=== PATIENT | male | born 1970 | race Caucasian/White ===

== ENCOUNTER 2024-02-26 14:26 | Inpatient (IN) | payer OTHER, SELFPAY ==
[2024-02-26] VITALS (11 sets, daily range): BP systolic 111–156; BP diastolic 60–98; BMI 26.3; BMI 25.8
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
[2024-02-26 10:25] LABS: Ammonia 97 umol/L (9-30)
[2024-02-26 10:28] LABS: Glucose 222 mg/dl (70-99)
[2024-02-26 10:29] LABS: Albumin 3.4 g/dl (3.5-5.0); Alkaline Phosphatase 110 U/L (38-126); Blood Urea Nitrogen 19 mg/dl (9-20); Calcium 8.3 mg/dl (8.4-10.2); Carbon Dioxide 17 mmol/L (22-30); Chloride 108 mmol/L (98-107); Estimated Creatinine Clearance > 125 ml/min; Potassium 4.5 mmol/L (3.5-5.1); Sodium 133 mmol/L (135-145); Total Bilirubin 7.6 mg/dl (0.2-1.3); Total Protein 6.5 g/dl (6.3-8.2); eGFR > 60.00
[2024-02-26 10:30] LABS: ALT (SGPT) 26 U/L (0-50); AST (SGOT) 40 U/L (17-59); Alcohol 62 mg/dl; Magnesium 1.9 mg/dl (1.6-2.3)
[2024-02-26 11:24] LABS: Hemoglobin 12.8 g/dL (13.0-18.0); Red Blood Cell Count 3.81 10^6/uL (4.70-6.10); White Blood Cell Count 6.1 10^3/uL (4.8-10.8)
[2024-02-26 11:25] LABS: % Basophils 0.2 % (0-2); % Eosinophils 1.8 % (0-6); % Immature Granulocytes 0.5 % (0-0.5); % Lymphocytes 22.8 % (20.5-51.1); % Monocytes 16.1 % (1.7-9.3); % Neutrophils 58.6 % (42.2-75.2); Absolute Neutrophils 3.6 10^3/uL (1.4-6.5); Hematocrit 35.4 % (39.0-52.0); Mean Corp Hgb Conc. 36.2 g/dL (33.0-37.0); Mean Corpuscular Hgb 33.6 pg (27.0-31.0); Mean Corpuscular Volume 92.9 fL (80.0-94.0); Mean Platelet Volume 12.6 fL (7.4-10.4); Platelet Count 63 10^3/uL (130-400); Red Cell Dist. Width 19.3 % (11.5-14.5)
[2024-02-26 11:26] LABS: Absolute Eosinophils 0.1 10^3/uL (0-0.7); Absolute Lymphocytes 1.4 10^3/uL (1.2-3.4); Nucleated Red Blood Cells % 0 % (-)
--- NOTE | 2024-02-26 12:30 | PHANOTE ---
med rec ras(02/26/24)-patient unsure of his medications, states the only important ones are the insulin injections and the lactulose. States he has 2 insulin pens, but does not know which one is which, and injects 10 units from one of his pens every
morning. Relied mainly on pharmacy records to compile the medication list.
[2024-02-26] MEDS: DUPHALAC/CHRONULAC 20 GRAMS PO (12:41)
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
--- NOTE | 2024-02-26 14:34 | W.PN.UPDATE ---
Update Note
Progress Note Update
Patient seen and examined, and discussed with NOMI Grubbs, and I agree with her note.
Gen-mild distress due to nausea and vomiting, awake and alert
HEENT-NC, AT, anicteric, clear oral mm
Neck-supple
CV-reg, no M, +S1/S2
Lungs-clear B/L
Abd-soft, NT, ND
Ext-no edema
Musculoskeletal-no cyanosis, clubbing
Skin-warm and dry
Neuro-grossly non-focal, no asterixis
Psych-calm, cooperative
Intractable vomiting -rule out bowel obstruction. Check obstruction series. Antiemetics. Admit to telemetry.
Acute alcohol intoxication -last drink was this morning. Alcohol level 62. He claims he had 1-1/2 glasses of wine. States he was sober for 2 weeks prior to today. [place] increased anxiety and stress this morning due to financial situation and
decided to have some drinks.
Hepatic encephalopathy -ammonia level 97. Suspect related to noncompliance with lactulose. He was just discharged from [facility] yesterday. Patient states that they were not administering enough lactulose to him. He is locked out of
his home today and cannot get access to lactulose. He resides with his mother. He took a Uber to the emergency room.
Please obtain records from [facility].
Metabolic acidosis -normal anion gap. Check urinalysis.
Hyponatremia -suspect due to alcohol abuse, cirrhosis.
Alcoholic cirrhosis -check INR. GI consult. Will need ongoing GI follow-up after discharge.
Severe alcohol use disorder -recommend rehab on discharge. Consult psychiatry for assistance. He does have anxiety disorder. Alcohol withdrawal protocol, thiamine, folic acid.
History of colon cancer -recent colectomy in July at [facility]. Has not been back to see gastroenterology since.
DM2 with hyperglycemia -glucose 222. Resume Lantus, add sliding scale insulin. Hold Januvia.
Thrombocytopenia -likely chronic and due to cirrhosis, alcoholism.
Full code
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
[2024-02-26 15:01] LABS: Direct Bilirubin 2.5 mg/dl (0.0-0.4)
[2024-02-26] MEDS: COMPAZINE 10 MG IV (15:07)
[2024-02-26] MEDS: PROTONIX IV 80 MG IV (15:24)
[2024-02-26 15:28] LABS: INR 1.92; PT 21.8 Sec (11.4-14.6)
[2024-02-26] MEDS: NSS (PRESERVATIVE FREE) 20 ML IV (15:30)
[2024-02-26] MEDS: PROTONIX 100 IV (15:31)
[2024-02-26 16:01] LABS: Urine Albumin Negative (Neg - Trace); Urine Bilirubin 1+ (Negative); Urine Character Clear (Clear); Urine Color Amber; Urine Glucose 2+ (Negative); Urine Ketone 3+ (Negative); Urine Leukocyte Trace (Negative); Urine Nitrite Negative (Negative); Urine Occult Blood 2+ (Negative); Urine Specific Gravity 1.015 (<1.030); Urine Urobilinogen 4+ (Neg - 1+)
[2024-02-26 16:36] LABS: Amphetamines Negative (Negative); Barbiturates Negative (Negative); Benzodiazepines Positive (Negative); Buprenorphine Negative (Negative); Cocaine Negative (Negative); Marijuana Negative (Negative); Methadone Negative (Negative); Methamphetamines Negative (Negative); Opiates Negative (Negative); Phencyclidine Negative (Negative); Tricyclic Antidepressants Negative (Negative)
[2024-02-26 16:44] LABS: GGTP 100 U/L (15-73); Phosphorus 2.9 mg/dl (2.5-4.5)
[2024-02-26] MEDS: NSS 1000 IV (16:44)
[2024-02-26 16:45] LABS: Fentanyl, Urine Negative (Negative)
[2024-02-26 16:51] LABS: B-Hydroxybutyrate 0.47 mmol/L (0.02-0.27)
[2024-02-26 16:55] LABS: Glucose - Point of Care 196 mg/dl (70-99)
[2024-02-26 17:04] LABS: Urine Mucus Few; Urine Red Blood Cell 16-20 /HPF (0-2); Urine White Cell 0-2 /HPF (0-5)
[2024-02-26] MEDS: DUPHALAC/CHRONULAC PO (17:05)
[2024-02-26] MEDS: THIAMINE INJECTION 200 MG IV ×2 (18:26→23:14)
[2024-02-26] MEDS: NOVOLOG FLEXPEN-LOW RESISTANCE 1 UNITS SC (18:27)
[2024-02-26] MEDS: DUPHALAC/CHRONULAC 30 GRAMS PO (21:00)
[2024-02-26 21:25] LABS: Glucose - Point of Care 170 mg/dl (70-99)
[2024-02-27] VITALS (8 sets, daily range): BP systolic 112–134; BP diastolic 60–72; PULSE 80–82; O2SAT 99–100; BMI 25.7
[2024-02-27] MEDS: PROTONIX 100 IV (00:45)
[2024-02-27] MEDS: NSS 1000 IV ×2 (01:04→12:07)
[2024-02-27 06:56] LABS: Glucose - Point of Care 163 mg/dl (70-99)
[2024-02-27 07:10] LABS: ALT (SGPT) 19 U/L (0-50); AST (SGOT) 40 U/L (17-59); Albumin 2.7 g/dl (3.5-5.0); Alkaline Phosphatase 81 U/L (38-126); Blood Urea Nitrogen 11 mg/dl (9-20); Calcium 7.2 mg/dl (8.4-10.2); Carbon Dioxide 17 mmol/L (22-30); Chloride 111 mmol/L (98-107); Estimated Creatinine Clearance > 125 ml/min; Glucose 155 mg/dl (70-99); Potassium 3.4 mmol/L (3.5-5.1); Sodium 132 mmol/L (135-145); Total Bilirubin 5.5 mg/dl (0.2-1.3); Total Protein 5.5 g/dl (6.3-8.2); eGFR > 60.00
--- NOTE | 2024-02-27 08:09 | W.PN.GI.CBS2 ---
Today's Communication / Plan
-
Adv diet to 2 gm sodium diet
If hb stable OK to Dc home
Assessment / Plan
-
Pt is a 53yo with hx ETOH abuse, cirrhosis(unclear primary GI following- ? [facility]), prior TIPS, colon CA with colectomy, NIDDM with prior care at [place] and [facility] presents with concern for hepatic encephalopathy after inability
to take Lactulose as locked out of house without medications. He is also noted with vomiting dark emesis in ER with decreased ostomy output. He admits to drinking ETOH prior to admission. On admission hbg 12.8, platelets 63,000, INR 1.92 Na 133,
glucose 222, bili 7.6, AST 40, ALT 26, alk phos 110. ammonia 97, albumin 3.4.
02/26/24 obstruction series No acute abnormalities. The lungs are clear. No evidence for obstruction with large amount of stool seen within the proximal colon.
-confusion concern for HE due to medication non compliance
-nausea/vomiting dark emesis in ER with decreased stool output
-constipation per obstruction series
-cirrhosis
-ETOH abuse with use prior to admission
-hx TIPS seen on abd imaging
-metabolic acidosis
-hyponatremia
-thrombocytopenia
-coagulopathy
-hypoalbuminemia
-hx colon Ca with resection 07/2023 at [facility]
--NIDDM
PLAN:
Pt with admission for cirrhosis with mild HE with admitted medication non compliance with lactulose
Cg emesis resolved was likely secondary to alcohol gastritis versus esophagitis versus peptic ulcer disease, he is status post TIPS so less likely variceal bleed
Monitor Hb and if stable OK to DC home later today
Will change PPI to bid and Dc gtt
obstruction series with large stool seen in proximal colon
continue Lactulose TID
monitor for withdrawal, continue thiamine and folic acid
MELD 3.0 19
Thrombocytopenia related to underlying cirrhosis since no active bleeding does not need platelet transfusion
He does have elevated bilirubin also most likely from alcohol liver disease trendingg down
Reinforced importance of strict alcohol abstinence
Also reinforced compliance with follow-ups. 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
Subjective
Subjective
Date of Service: February 27, 2024
Tolerating diet no further nausea or vomiting he has had more output in the colostomy. No coffee-ground emesis and the output in the colostomy is brown no melena or rectal bleeding.
Objective
Data Reviewed
Laboratory Data:
Laboratory Results
02/27/24 05:28
Laboratory Results
PT 21.8 Sec (11.4-14.6) H 02/26/24 09:45
INR 1.92 02/26/24 09:45
Phosphorus 2.9 mg/dl (2.5-4.5) 02/26/24 16:18
Magnesium 1.9 mg/dl (1.6-2.3) 02/26/24 09:54
Total Bilirubin 5.5 mg/dl (0.2-1.3) H 02/27/24 05:28
AST 40 U/L (17-59) 02/27/24 05:28
ALT 19 U/L (0-50) 02/27/24 05:28
Alkaline Phosphatase 81 U/L (38-126) 02/27/24 05:28
Vital Signs and I&O:
Vital Signs
Temp Pulse Resp BP Pulse Ox
98.7 F 80 16 128/67 100
02/27/24 07:00 02/27/24 07:00 02/27/24 07:00 02/27/24 07:00 02/27/24 07:00
I&O
02/26/24 02/27/24 02/28/24
06:59 06:59 06:59
Intake Total 1300 / 1300
Output Total 965 / 965
Balance 335 / 335
Physical Exam
Physical Exam
Cardiology: Normal Sinus Rhythm
Pulmonary: Clear
GI: Soft, Non Distended, Non Tender, Normal Bowel Sounds and Other (colostomy bg with brown stool)
[2024-02-27 08:22] LABS: Magnesium 1.7 mg/dl (1.6-2.3)
[2024-02-27] MEDS: FOLVITE 1 MG PO (08:40)
[2024-02-27] MEDS: KCL 40 MEQ PO (08:40)
[2024-02-27] MEDS: THIAMINE INJECTION 200 MG IV ×2 (08:40→16:44)
[2024-02-27] MEDS: JANUVIA 100 MG PO (08:40)
[2024-02-27] MEDS: DUPHALAC/CHRONULAC 30 GRAMS PO ×3 (08:41→22:05)
[2024-02-27] MEDS: NOVOLOG FLEXPEN-LOW RESISTANCE 1 UNITS SC ×2 (08:42→16:50)
[2024-02-27] MEDS: LANTUS 0.1 UNITS SC (08:46)
[2024-02-27] MEDS: FLUSH (NSS) 2 FLUSH IV ×2 (08:47→16:45)
[2024-02-27 09:03] LABS: % Basophils 0.3 % (0-2); % Eosinophils 2.2 % (0-6); % Immature Granulocytes 0.3 % (0-0.5); % Lymphocytes 36.8 % (20.5-51.1); % Monocytes 17.1 % (1.7-9.3); % Neutrophils 43.3 % (42.2-75.2); Absolute Eosinophils 0.1 10^3/uL (0-0.7); Absolute Lymphocytes 1.2 10^3/uL (1.2-3.4); Absolute Monocytes 0.5 10^3/uL (0.1-0.6); Absolute Neutrophils 1.4 10^3/uL (1.4-6.5); Hematocrit 30.6 % (39.0-52.0); Hemoglobin 10.9 g/dL (13.0-18.0); Mean Corp Hgb Conc. 35.6 g/dL (33.0-37.0); Mean Corpuscular Hgb 34.2 pg (27.0-31.0); Mean Corpuscular Volume 95.9 fL (80.0-94.0); Mean Platelet Volume 12.8 fL (7.4-10.4); Nucleated Red Blood Cells % 0 % (-); Platelet Count 32 10^3/uL (130-400); Red Blood Cell Count 3.19 10^6/uL (4.70-6.10); White Blood Cell Count 3.2 10^3/uL (4.8-10.8)
--- NOTE | 2024-02-27 11:03 | W.PN.UPDATE ---
Update Note
Progress Note Update
Patient reports he is feeling ' out of it ', feels confused and dysphoric. Realizes he needs to stop drinking but finds it difficult to do so. Denies hopelessness or suicidal thoughts.
Cognitively he is oriented in all spheres but is easily distracted , has poor immediate recall and cannot do even simple calculations.
He is interested in rehab which would help in order to increase his chances of maintaining sobriety.
[2024-02-27 12:01] LABS: Glucose - Point of Care 216 mg/dl (70-99)
[2024-02-27] MEDS: NOVOLOG FLEXPEN-LOW RESISTANCE 2 UNITS SC (12:03)
--- NOTE | 2024-02-27 12:59 | W.PN.HOSP.TC ---
Today's Communication/Plan
-
Protonix
Lactulose
Antiemetics
Bicarbonate drip
PT/OT
Case management assistance for discharge planning
Assessment / Plan
Assessment / Plan
Gen-AAOx3, NAD
HEENT-NC, AT, anicteric, clear oral mm
Neck-supple
CV-reg, no M, +S1/S2
Lungs-clear B/L
Abd-soft, NT, ND, ostomy intact
Ext-no edema
Musculoskeletal-no cyanosis, clubbing
Skin-warm and dry
Neuro-grossly non-focal
Psych-calm, cooperative
Intractable nausea/vomiting -no obstruction noted on x-ray. Etiology of nausea unclear but differential diagnosis includes ketosis versus gastritis versus constipation versus other causes. Continue Protonix, lactulose, antiemetics.
Acute alcohol intoxication -last drink was morning of admission. Alcohol level 62. He claims he had 1-1/2 glasses of wine. States he was sober for 2 weeks prior to today. [place] increased anxiety and stress this morning due to financial situation
and decided to have some drinks.
Hepatic encephalopathy -mental status improving, continue lactulose.
Metabolic acidosis -normal anion gap. Positive urine ketones noted. Start IV bicarbonate drip.
Hyponatremia -suspect due to alcohol abuse, cirrhosis.
Hypokalemia -magnesium normal. Replete orally.
Alcoholic cirrhosis -INR 1.9. Elevated bilirubin noted, mostly indirect. Transaminases and alkaline phosphatase normal. Will need ongoing GI follow-up after discharge.
Severe alcohol use disorder -recommend rehab on discharge. Consult psychiatry for assistance. He does have anxiety disorder. Alcohol withdrawal protocol, thiamine, folic acid. Discussed with case management to look into rehab options.
History of colon cancer -recent colectomy in July at [facility]. Has not been back to see gastroenterology since.
DM2 with hyperglycemia -hemoglobin A1c 6.0%. He is on Lantus 10 units daily and lispro sliding scale along with Januvia at home. Glucose 155 this morning. Currently on Lantus 10 units daily, Januvia 100 mg daily, low resistance aspart scale.
Pancytopenia -likely chronic and due to cirrhosis, alcoholism.
Full code
Anticipated Discharge: > 48 hours
Subjective/Interval History
-
Date of Service: February 27, 2024
Patient seen and examined. Complaining of nausea. Denies vomiting.
Objective Data
-
Labs:
Laboratory Results
02/27/24 02/27/24
05:28 07:53
WBC Cancelled 3.2 L
Hgb Cancelled 10.9 L
Hct Cancelled 30.6 L
Plt Count Cancelled 32 L D
Sodium 132 L
Potassium 3.4 L
Chloride 111 H
Carbon Dioxide 17 L
BUN 11
Creatinine 0.5 L
Glucose 155 H
Calcium 7.2 L
Total Bilirubin 5.5 H
AST 40
ALT 19
Alkaline Phosphatase 81
Vital Signs:
Vital Signs
Temp Pulse Resp BP Pulse Ox
98.1 F 76 16 112/60 99
02/27/24 11:05 02/27/24 11:05 02/27/24 11:05 02/27/24 11:05 02/27/24 11:05
I&O
02/26/24 02/27/24 02/28/24
06:59 06:59 06:59
Intake Total 1300 / 1300
Output Total 965 / 965
Balance 335 / 335
Review of Systems
-
History Source: Patient
All other systems: Reviewed and negative
[2024-02-27] MEDS: SODIUM BICARBONATE 1150 MEQ IV (13:58)
[2024-02-27] MEDS: NSS (PRESERVATIVE FREE) 10 ML IV (14:01)
[2024-02-27] MEDS: FLUSH (NSS) 1 FLUSH IV (14:03)
[2024-02-27] MEDS: PROTONIX IV 40 MG IV (14:03)
--- NOTE | 2024-02-27 14:58 | CM ---
CM met with pt bedside
He resides with his mother in a 2SH with 10STE
13 steps up to second floor
Pt notes independence with his ADLs
He has a SPC for use as needed
He has an ostomy which he self cares for
He orders supplies from a company, name unknown
Pt notes hx with alcoholism and experience at [place] for inpt tx
he notes his mother is currently hospitalized at [facility]
PCP- name unknown, notes he has one
Rx- [facility]
PT/OT following
PT recs no needs
OT recs VN vs no needs
Pt requesting inpatient D/A treatment be arranged on dc
In agreement with working with [facility]
Referral made to Jesus- plan for bedside assessment tomorrow morning at 9am
Pt will require for auth for treatment
Clinicals faxed to [facility] at [phone]
Discharge Disposition- inpatient D/A treatment
[2024-02-27 16:45] LABS: Glucose - Point of Care 185 mg/dl (70-99)
[2024-02-27 21:42] LABS: Glucose - Point of Care 235 mg/dl (70-99)
[2024-02-28] MEDS: THIAMINE INJECTION 200 MG IV ×4 (00:25→23:27)
[2024-02-28 03:28] VITALS: BP 128/54
[2024-02-28 06:00] VITALS: BMI 26.0
[2024-02-28] MEDS: SODIUM BICARBONATE 1150 MEQ IV (06:12)
[2024-02-28 06:47] LABS: Hematocrit 28.8 % (39.0-52.0); Hemoglobin 10.4 g/dL (13.0-18.0); Mean Corp Hgb Conc. 36.1 g/dL (33.0-37.0); Mean Corpuscular Hgb 34.3 pg (27.0-31.0); Mean Platelet Volume 11.3 fL (7.4-10.4); Platelet Count 21 10^3/uL (130-400); Red Blood Cell Count 3.03 10^6/uL (4.70-6.10); Red Cell Dist. Width 18.6 % (11.5-14.5); White Blood Cell Count 1.8 10^3/uL (4.8-10.8)
[2024-02-28 06:55] LABS: Glucose - Point of Care 198 mg/dl (70-99)
[2024-02-28 06:58] LABS: ALT (SGPT) 19 U/L (0-50); AST (SGOT) 29 U/L (17-59); Albumin 2.7 g/dl (3.5-5.0); Alkaline Phosphatase 123 U/L (38-126); Blood Urea Nitrogen 7 mg/dl (9-20); Calcium 7.9 mg/dl (8.4-10.2); Carbon Dioxide 23 mmol/L (22-30); Chloride 104 mmol/L (98-107); Estimated Creatinine Clearance > 125 ml/min; Glucose 188 mg/dl (70-99); Potassium 3.6 mmol/L (3.5-5.1); Sodium 130 mmol/L (135-145); Total Protein 5.4 g/dl (6.3-8.2); eGFR > 60.00
[2024-02-28 07:00] VITALS: BP 124/59
[2024-02-28] MEDS: NOVOLOG FLEXPEN-LOW RESISTANCE 1 UNITS SC (08:01)
[2024-02-28] MEDS: LANTUS 0.1 UNITS SC (08:10)
[2024-02-28] MEDS: NSS (PRESERVATIVE FREE) 10 ML IV (08:11)
[2024-02-28] MEDS: DUPHALAC/CHRONULAC 30 GRAMS PO (08:11)
[2024-02-28] MEDS: PROTONIX IV 40 MG IV (08:11)
[2024-02-28] MEDS: FOLVITE 1 MG PO (08:12)
[2024-02-28] MEDS: FLUSH (NSS) 2 FLUSH IV ×2 (08:21→15:58)
[2024-02-28] MEDS: JANUVIA 100 MG PO (08:25)
[2024-02-28 08:27] LABS: Band Neutrophils 0 % (0-3); Eosinophils 3 % (0-6); Lymphocytes 24 % (20-51); Monocytes 21 % (2-9); Segmented Neutrophils 52 % (42-75)
[2024-02-28 08:28] LABS: Anisocytosis 1+; Normal RBC Morphology No; Ovalocytes Slight; Platelets Checked Yes; Total Cells Counted 100
[2024-02-28 08:30] LABS: Absolute Neutrophils -Man Diff 0.9 10^3/uL (1.4-6.5)
--- NOTE | 2024-02-28 10:17 | W.PN.GI.CBS2 ---
Today's Communication / Plan
-
f/u with [facility] and oncology
ETOH ABSTINENCE
Assessment / Plan
-
Pt is a 53yo with hx ETOH abuse, cirrhosis(unclear primary GI following- ? [facility]), prior TIPS, colon CA with colectomy, NIDDM with prior care at [place] and [facility] presents with concern for hepatic encephalopathy after inability
to take Lactulose as locked out of house without medications. He is also noted with vomiting dark emesis in ER with decreased ostomy output. He admits to drinking ETOH prior to admission. On admission hbg 12.8, platelets 63,000, INR 1.92 Na 133,
glucose 222, bili 7.6, AST 40, ALT 26, alk phos 110. ammonia 97, albumin 3.4.
02/26/24 obstruction series No acute abnormalities. The lungs are clear. No evidence for obstruction with large amount of stool seen within the proximal colon.
-confusion concern for HE due to medication non compliance
-nausea/vomiting dark emesis in ER with decreased stool output
-constipation per obstruction series
-cirrhosis
-ETOH abuse with use prior to admission
-hx TIPS seen on abd imaging
-metabolic acidosis
-hyponatremia
-thrombocytopenia
-coagulopathy
-hypoalbuminemia
-hx colon Ca with resection 07/2023 at [facility]
--NIDDM
PLAN:
Pt with admission for cirrhosis with mild HE with admitted medication non compliance with lactulose
Cg emesis resolved was likely secondary to alcohol gastritis versus esophagitis versus peptic ulcer disease, he is status post TIPS so less likely variceal bleed
Continue PPI can change to PO
obstruction series with large stool seen in proximal colon
continue Lactulose TID
monitor for withdrawal, continue thiamine and folic acid
Thrombocytopenia worsened today related to underlying cirrhosis and ETOH, since no active bleeding does not need platelet transfusion
WBC count also dropped also likely secondary to alcohol and cirrhosis
He does have elevated bilirubin also most likely from alcohol liver disease trending down
Reinforced importance of strict alcohol abstinence
Also reinforced compliance with follow-ups. 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
will s/o and will be available as needed
Subjective
Subjective
Date of Service: February 28, 2024
Patient's mentation is at baseline. No rectal bleeding or melena. And no abdominal pain or vomiting. Hemoglobin is stable but did have a significant drop in platelets and WBC count
Objective
Data Reviewed
Laboratory Data:
Laboratory Results
02/28/24 05:51
02/28/24 05:51
Laboratory Results
PT 21.8 Sec (11.4-14.6) H 02/26/24 09:45
INR 1.92 02/26/24 09:45
Phosphorus 2.9 mg/dl (2.5-4.5) 02/26/24 16:18
Magnesium 1.7 mg/dl (1.6-2.3) 02/27/24 05:28
Total Bilirubin 4.0 mg/dl (0.2-1.3) H 02/28/24 05:51
AST 29 U/L (17-59) 02/28/24 05:51
ALT 19 U/L (0-50) 02/28/24 05:51
Alkaline Phosphatase 123 U/L (38-126) 02/28/24 05:51
Vital Signs and I&O:
Vital Signs
Temp Pulse Resp BP Pulse Ox
98.3 F 78 16 124/59 98
02/28/24 07:00 02/28/24 07:00 02/28/24 07:00 02/28/24 07:00 02/28/24 07:00
I&O
02/27/24 02/28/24 02/29/24
06:59 06:59 06:59
Intake Total 1300 / 1300 1440 / 1440
Output Total 965 / 965 1725 / 1725
Balance 335 / 335 -285 / -285
Physical Exam
Physical Exam
Cardiology: Normal Sinus Rhythm
Pulmonary: Clear
GI: Soft, Non Distended, Non Tender, Normal Bowel Sounds and Other (Colostomy noted with brown stool)
--- NOTE | 2024-02-28 10:37 | W.PN.HOSP.TC ---
Today's Communication/Plan
-
Check records from [facility]
labs in the morning
Assessment / Plan
Assessment / Plan
Gen-AAOx3, NAD
HEENT-NC, AT, anicteric, clear oral mm
Neck-supple
CV-reg, no M, +S1/S2
Lungs-clear B/L
Abd-soft, NT, ND, ostomy intact
Ext-no edema
Musculoskeletal-no cyanosis, clubbing
Skin-warm and dry
Neuro-grossly non-focal
Psych-calm, cooperative
Intractable nausea/vomiting -no obstruction noted on x-ray. Nausea resolved. Suspect related to acidosis which is now resolved with bicarbonate drip.
Acute alcohol intoxication -last drink was morning of admission. Alcohol level 62. He claims he had 1-1/2 glasses of wine. States he was sober for 2 weeks prior to today. [place] increased anxiety and stress this morning due to financial situation
and decided to have some drinks.
Hepatic encephalopathy -mental status improving, continue lactulose.
Metabolic acidosis -normal anion gap. Acidosis improved with bicarb drip. Can discontinue and recheck labs in the morning.
Hyponatremia -suspect due to alcohol abuse, cirrhosis. 130 today, monitor.
Hypokalemia -magnesium normal. Replete orally.
Alcoholic cirrhosis -INR 1.9. Elevated bilirubin noted, mostly indirect. Transaminases and alkaline phosphatase normal. Will need ongoing GI follow-up after discharge.
Severe alcohol use disorder -recommend rehab on discharge. Consult psychiatry for assistance. He does have anxiety disorder. Alcohol withdrawal protocol, thiamine, folic acid. Discussed with case management to look into rehab options.
History of colon cancer - recent colectomy and colostomy creation in July at [facility]. Has not been back to see gastroenterology since.
DM2 with hyperglycemia -hemoglobin A1c 6.0%. He is on Lantus 10 units daily and lispro sliding scale along with Januvia at home. Glucose 198 this morning. Currently on Lantus 10 units daily, Januvia 100 mg daily, low resistance aspart scale.
Will increase Lantus to 14 units daily.
Pancytopenia -likely chronic and due to cirrhosis, alcoholism. Awaiting records from [facility]. Discussed with business unit director and nurse. Counts are getting worse, more neutropenic today. ANC 900. No fevers.
Full code
Dispo -anticipate discharge to inpatient alcohol rehab. Case management aware.
Anticipated Discharge: 24 - 48 hours
Subjective/Interval History
-
Date of Service: February 28, 2024
Patient seen and examined. Feeling better, denies nausea. Tolerating diet. No complaints.
Objective Data
-
Labs:
Laboratory Results
02/28/24
05:51
WBC 1.8 L*
Hgb 10.4 L
Hct 28.8 L
Plt Count 21 L* D
Sodium 130 L
Potassium 3.6
Chloride 104
Carbon Dioxide 23
BUN 7 L
Creatinine 0.5 L
Glucose 188 H
Calcium 7.9 L
Total Bilirubin 4.0 H
AST 29
ALT 19
Alkaline Phosphatase 123
Vital Signs:
Vital Signs
Temp Pulse Resp BP Pulse Ox
98.3 F 78 16 124/59 98
02/28/24 07:00 02/28/24 07:00 02/28/24 07:00 02/28/24 07:00 02/28/24 07:00
I&O
02/27/24 02/28/24 02/29/24
06:59 06:59 06:59
Intake Total 1300 / 1300 1440 / 1440
Output Total 965 / 965 1725 / 1725
Balance 335 / 335 -285 / -285
Review of Systems
-
History Source: Patient
All other systems: Reviewed and negative
[2024-02-28 11:23] LABS: Glucose - Point of Care 248 mg/dl (70-99)
[2024-02-28 11:26] VITALS: BP 124/66
[2024-02-28] MEDS: ALDACTONE 25 MG PO (11:57)
--- NOTE | 2024-02-28 12:26 | W.PN.UPDATE ---
Update Note
Progress Note Update
Patient is doing well, states he is agreeable to go to rehab. States he wants to work on his sobriety.
Denies depression, hopelessness or suicidal thoughts.
Hopefully he can be discharged to rehab directly.
[2024-02-28] MEDS: NOVOLOG FLEXPEN-LOW RESISTANCE 2 UNITS SC ×2 (12:43→17:37)
--- NOTE | 2024-02-28 13:01 | CM ---
CM reviewed pt with [facility]
Meeting this morning and pt in agreement with inpt D/A rehab
Referral was sent to [facility] and pending
[facility] will continue to follow to make arrangements for D/A rehab on dc
Discharge Disposition- inpatient D/A rehab/[facility]
[2024-02-28 15:05] VITALS: BP 133/68
[2024-02-28] MEDS: DUPHALAC/CHRONULAC 20 GRAMS PO (15:57)
--- NOTE | 2024-02-28 16:06 | PTCARENOTE ---
Pt took 30 gms of Laculose this am. This afternoon he refused the 30 grams and only took 20gms. He states that his stool becomes too messy and loose if he takes more. He will refused the other dose later today as well. Please adjust the order?
Will cont to monitor.
[2024-02-28 17:36] LABS: Glucose - Point of Care 203 mg/dl (70-99)
[2024-02-28 19:18] VITALS: BP 125/75
[2024-02-28] MEDS: DUPHALAC/CHRONULAC PO (21:01)
[2024-02-28 21:35] LABS: Glucose - Point of Care 250 mg/dl (70-99)
--- NOTE | 2024-02-28 22:10 | PTCARENOTE ---
Pt refused 2200 Lactulose dose
[2024-02-28 23:12] VITALS: BP 115/59
[2024-02-29 03:34] VITALS: BP 116/58
[2024-02-29 05:30] VITALS: BMI 26.0
[2024-02-29 06:00] VITALS: BMI 26.0
[2024-02-29 06:52] LABS: Hematocrit 29.9 % (39.0-52.0); Hemoglobin 10.6 g/dL (13.0-18.0); Mean Corp Hgb Conc. 35.5 g/dL (33.0-37.0); Mean Corpuscular Hgb 34.4 pg (27.0-31.0); Mean Corpuscular Volume 97.1 fL (80.0-94.0); Red Blood Cell Count 3.08 10^6/uL (4.70-6.10); Red Cell Dist. Width 18.6 % (11.5-14.5); White Blood Cell Count 1.4 10^3/uL (4.8-10.8)
[2024-02-29 07:00] VITALS: BP 117/65
[2024-02-29 07:04] LABS: ALT (SGPT) 20 U/L (0-50); AST (SGOT) 29 U/L (17-59); Albumin 2.8 g/dl (3.5-5.0); Alkaline Phosphatase 134 U/L (38-126); Blood Urea Nitrogen 7 mg/dl (9-20); Calcium 8.2 mg/dl (8.4-10.2); Carbon Dioxide 24 mmol/L (22-30); Chloride 106 mmol/L (98-107); Estimated Creatinine Clearance > 125 ml/min; Glucose 202 mg/dl (70-99); Potassium 3.8 mmol/L (3.5-5.1); Sodium 132 mmol/L (135-145); Total Bilirubin 3.9 mg/dl (0.2-1.3); Total Protein 5.6 g/dl (6.3-8.2); eGFR > 60.00
[2024-02-29 07:18] LABS: Glucose - Point of Care 215 mg/dl (70-99)
[2024-02-29] MEDS: NOVOLOG FLEXPEN-LOW RESISTANCE 2 UNITS SC ×2 (07:20→11:29)
[2024-02-29] MEDS: JANUVIA 100 MG PO (07:59)
[2024-02-29] MEDS: FOLVITE 1 MG PO (07:59)
[2024-02-29] MEDS: PROTONIX 40 MG PO (07:59)
[2024-02-29] MEDS: DUPHALAC/CHRONULAC 30 GRAMS PO ×2 (07:59→15:17)
[2024-02-29] MEDS: LANTUS 0.14 UNITS SC (07:59)
[2024-02-29] MEDS: ALDACTONE 25 MG PO (08:00)
[2024-02-29] MEDS: THIAMINE INJECTION 200 MG IV (08:00)
[2024-02-29 08:45] LABS: Mean Platelet Volume 12.7 fL (7.4-10.4)
[2024-02-29 08:47] LABS: Platelet Count 20 10^3/uL (130-400)
[2024-02-29 08:58] LABS: Band Neutrophils 4 % (0-3); Lymphocytes 25 % (20-51)
[2024-02-29 08:59] LABS: Anisocytosis 1+; Macrocytosis 1+; Normal RBC Morphology No; Ovalocytes 1+; Platelets Checked Yes; Total Cells Counted 100
[2024-02-29 09:00] LABS: Monocytes 13 % (2-9); Segmented Neutrophils 58 % (42-75)
[2024-02-29 09:02] LABS: Absolute Neutrophils -Man Diff 0.8 10^3/uL (1.4-6.5)
--- NOTE | 2024-02-29 10:43 | PN.DE ---
Diabetes Education
- -
02/29/2024: Diabetes Education Consult
53 year old male with PMH: HTN, colon ca s/p recent colectomy/ colostomy @ [facility] and T2DM. Pt admitted with Intractable N/V and Acute alcohol intoxication. Was taking Lantus 10 units daily and lispro sliding scale along with Januvia. A1C 6.0%, Cr
0.5, eGFR>60 .
Diabetes Education consult requested because pt does not know which of his insulin is short acting and long acting.
Pt states that he only takes Lantus 10 units in AM and that he has not needed to take the short acting insulin because his blood sugar has been well controlled since he made a life style change.
He is currently on Lantus 14 units daily, Januvia 100 mg daily and low corrective insulin with meals.
Discussed action of both rapid acting and long acting insulin as well as symptoms and treatment of hypoglycemia.
Instructions on set up of insulin pen given with good return demonstration, although he required additional cues and step by step instructions which may be attributed to his chronic alcohol use.
Discussed A1C and average blood sugar of 120, diabetes related short and detention complications, life style modification and self management at home.
Pt states that he has lost a significant amt of weight that he is eating less carbs and processed foods.
offered outpatient diabetes education classes which pt declined, stating that he knows what he is doing.
No further Diabetes education is needed at this time.
[2024-02-29 11:00] VITALS: BP 123/62
[2024-02-29 11:10] LABS: Glucose - Point of Care 210 mg/dl (70-99)
--- NOTE | 2024-02-29 11:28 | W.PN.HOSP.TC ---
Today's Communication/Plan
-
monitor wbc, platelets
dc to rehab once ready
Assessment / Plan
Assessment / Plan
Gen-AAOx3, NAD
HEENT-NC, AT, anicteric, clear oral mm
Neck-supple
CV-reg, no M, +S1/S2
Lungs-clear B/L
Abd-soft, NT, ND, ostomy intact
Ext-no edema
Musculoskeletal-no cyanosis, clubbing
Skin-warm and dry
Neuro-grossly non-focal
Psych-calm, cooperative
Intractable nausea/vomiting -no obstruction noted on x-ray. Nausea resolved. Suspect related to acidosis which is now resolved with bicarbonate drip.
Acute alcohol intoxication -last drink was morning of admission. Alcohol level 62. He claims he had 1-1/2 glasses of wine. States he was sober for 2 weeks prior to today. [place] increased anxiety and stress this morning due to financial situation
and decided to have some drinks. OK to go to rehab upon dc
Hepatic encephalopathy -mental status improving, continue lactulose.
Metabolic acidosis -normal anion gap. Acidosis improved with bicarb drip. Can discontinue and recheck labs in the morning.
Hyponatremia -suspect due to alcohol abuse, cirrhosis. 130 today, monitor.
Hypokalemia -magnesium normal. Replete orally.
Alcoholic cirrhosis -INR 1.9. Elevated bilirubin noted, mostly indirect. Transaminases and alkaline phosphatase normal. Will need ongoing GI follow-up after discharge.
Severe alcohol use disorder -recommend rehab on discharge. Consult psychiatry for assistance. He does have anxiety disorder. Alcohol withdrawal protocol, thiamine, folic acid. Discussed with case management to look into rehab options.
History of colon cancer - recent colectomy and colostomy creation in July at [facility]. Has not been back to see gastroenterology since.
DM2 with hyperglycemia -hemoglobin A1c 6.0%. He is on Lantus 10 units daily and lispro sliding scale along with Januvia at home. Glucose 198 this morning. Currently on Lantus 10 units daily, Januvia 100 mg daily, low resistance aspart scale.
Will increase Lantus to 14 units daily.
Pancytopenia -likely chronic and due to cirrhosis, alcoholism. Awaiting records from [facility]. Discussed with shotgun shell reprinting unit operator and nurse. Counts are getting worse, more neutropenic today. No fevers; Await improvement in platelets/wbc
Full code
Dispo -anticipate discharge to inpatient alcohol rehab. Case management aware.
Anticipated Discharge: Within 24 hours
Subjective/Interval History
-
Date of Service: February 29, 2024
no acute events
Objective Data
-
Labs:
Laboratory Results
02/29/24
05:58
WBC 1.4 L*
Hgb 10.6 L
Hct 29.9 L
Plt Count 20 L*
Sodium 132 L
Potassium 3.8
Chloride 106
Carbon Dioxide 24
BUN 7 L
Creatinine 0.5 L
Glucose 202 H
Calcium 8.2 L
Total Bilirubin 3.9 H
AST 29
ALT 20
Alkaline Phosphatase 134 H
Vital Signs:
Vital Signs
Temp Pulse Resp BP Pulse Ox
98.6 F 77 18 117/65 99
02/29/24 07:00 02/29/24 08:00 02/29/24 07:00 02/29/24 08:00 02/29/24 07:00
I&O
02/28/24 02/29/24 03/01/24
06:59 06:59 06:59
Intake Total 1440 / 1440 3220 / 3220
Output Total 1725 / 1725 2355 / 2355
Balance -285 / -285 865 / 865
Review of Systems
-
History Source: Patient
All other systems: Not reviewed unless documented
Data Reviewed
-
CT Scan: Image personally visualized and interpreted and Report Reviewed by me
Labs: Labs Reviewed by me
--- NOTE | 2024-02-29 15:17 | PTOTSP ---
The patient is independent with ambulation and elevation, offering no concerns regarding his mobility upon discharge. No PT needs identified at this time, will sign off. Patient is aware our services are available if needed.
[2024-02-29 15:45] VITALS: BP 124/53
--- NOTE | 2024-02-29 15:50 | CM ---
Monitoring labs. Discharge Plan of Care: JASMEET working on inpatient [facility] rehab, Referral to [facility]. Awaiting acceptance. Will need insurance auth.
[2024-02-29 16:40] LABS: Glucose - Point of Care 197 mg/dl (70-99)
[2024-02-29] MEDS: NOVOLOG FLEXPEN-LOW RESISTANCE 1 UNITS SC (16:56)
[2024-02-29] MEDS: DUPHALAC/CHRONULAC PO (20:57)
[2024-02-29] MEDS: VITAMIN B1 100 MG PO (20:57)
[2024-02-29 21:28] LABS: Glucose - Point of Care 244 mg/dl (70-99)
[2024-02-29 23:05] VITALS: BP 141/71
[2024-03-01 05:58] VITALS: BMI 25.7
[2024-03-01 07:00] VITALS: BP 122/55
[2024-03-01 07:40] LABS: Glucose - Point of Care 240 mg/dl (70-99)
[2024-03-01] MEDS: ALDACTONE 25 MG PO (07:57)
[2024-03-01] MEDS: PROTONIX 40 MG PO (07:57)
[2024-03-01] MEDS: FOLVITE 1 MG PO (07:57)
[2024-03-01] MEDS: VITAMIN B1 100 MG PO ×2 (07:57→20:54)
[2024-03-01] MEDS: JANUVIA 100 MG PO (07:57)
[2024-03-01] MEDS: LANTUS 0.14 UNITS SC (08:03)
[2024-03-01] MEDS: NOVOLOG FLEXPEN-LOW RESISTANCE 2 UNITS SC ×2 (08:04→12:35)
[2024-03-01] MEDS: DUPHALAC/CHRONULAC 30 GRAMS PO ×2 (08:05→17:03)
[2024-03-01] MEDS: TYLENOL 650 MG PO ×2 (10:08→21:25)
[2024-03-01 10:20] LABS: ALT (SGPT) 23 U/L (0-50); AST (SGOT) 28 U/L (17-59); Alkaline Phosphatase 145 U/L (38-126); Blood Urea Nitrogen 8 mg/dl (9-20); Calcium 8.8 mg/dl (8.4-10.2); Carbon Dioxide 21 mmol/L (22-30); Chloride 104 mmol/L (98-107); Estimated Creatinine Clearance > 125 ml/min; Glucose 253 mg/dl (70-99); Potassium 3.8 mmol/L (3.5-5.1); Sodium 132 mmol/L (135-145); Total Bilirubin 3.7 mg/dl (0.2-1.3); eGFR > 60.00
--- NOTE | 2024-03-01 11:10 | W.PN.UPDATE ---
Update Note
Progress Note Update
Patient seen, chart reviewed, discussed with staff. Mr. Sauer is doing okay overall. Awaiting labs today re: pancytopenia. Currently on neutropenic precautions. Denies nay w/d symptoms and remains interested in rehab to work on his sobriety once
medically stable.
Impression/Recommendation: ETOH use disorder, severe - for rehab once medically stable. Psych to sign off, call or reconsult with any new or immediate needs.
[2024-03-01 11:44] LABS: % Basophils 0.7 % (0-2); % Eosinophils 2.1 % (0-6); % Lymphocytes 22.7 % (20.5-51.1); % Monocytes 26.7 % (1.7-9.3); % Neutrophils 48.6 % (42.2-75.2); Absolute Lymphocytes 0.4 10^3/uL (1.2-3.4); Absolute Monocytes 0.4 10^3/uL (0.1-0.6); Absolute Neutrophils 0.7 10^3/uL (1.4-6.5); Hematocrit 30.9 % (39.0-52.0); Hemoglobin 10.8 g/dL (13.0-18.0); Mean Corp Hgb Conc. 35.1 g/dL (33.0-37.0); Mean Corpuscular Hgb 33.9 pg (27.0-31.0); Mean Corpuscular Volume 96.5 fL (80.0-94.0); Mean Platelet Volume 10.4 fL (7.4-10.4); Nucleated Red Blood Cells % 0 % (-); Platelet Count 24 10^3/uL (130-400); Red Cell Dist. Width 18.7 % (11.5-14.5); White Blood Cell Count 1.5 10^3/uL (4.8-10.8)
--- NOTE | 2024-03-01 12:13 | PTCARENOTE ---
critical labs WBC, PLT, and Abs Neutro Low. Dr. Dolan made aware. Placed in chart
[2024-03-01 12:35] LABS: Glucose - Point of Care 244 mg/dl (70-99)
[2024-03-01] MEDS: LIDOCAINE 4% PATCH 1 PATCH TOPICAL (12:35)
--- NOTE | 2024-03-01 14:14 | W.PN.HOSP.TC ---
Today's Communication/Plan
-
monitor wbc, platelets
dc to rehab once improved
Assessment / Plan
Assessment / Plan
Gen-AAOx3, NAD
HEENT-NC, AT, anicteric, clear oral mm
Neck-supple
CV-reg, no M, +S1/S2
Lungs-clear B/L
Abd-soft, NT, ND, ostomy intact
Ext-no edema
Musculoskeletal-no cyanosis, clubbing
Skin-warm and dry
Neuro-grossly non-focal
Psych-calm, cooperative
Intractable nausea/vomiting -no obstruction noted on x-ray. Nausea resolved. Suspect related to acidosis which is now resolved with bicarbonate drip.
Acute alcohol intoxication -last drink was morning of admission. Alcohol level 62. He claims he had 1-1/2 glasses of wine. States he was sober for 2 weeks prior to today. [place] increased anxiety and stress this morning due to financial situation
and decided to have some drinks. OK to go to rehab upon dc
Hepatic encephalopathy -mental status improving, continue lactulose.
Metabolic acidosis -normal anion gap. Acidosis improved with bicarb drip. Can discontinue and recheck labs in the morning.
Hyponatremia -suspect due to alcohol abuse, cirrhosis. 130 today, monitor.
Hypokalemia -magnesium normal. Replete orally.
Alcoholic cirrhosis -INR 1.9. Elevated bilirubin noted, mostly indirect. Transaminases and alkaline phosphatase normal. Will need ongoing GI follow-up after discharge.
Severe alcohol use disorder -recommend rehab on discharge. Consult psychiatry for assistance. He does have anxiety disorder. Alcohol withdrawal protocol, thiamine, folic acid. Discussed with case management to look into rehab options.
History of colon cancer - recent colectomy and colostomy creation in July at [facility]. Has not been back to see gastroenterology since.
DM2 with hyperglycemia -hemoglobin A1c 6.0%. He is on Lantus 10 units daily and lispro sliding scale along with Januvia at home. Glucose 198 this morning. Currently on Lantus 10 units daily, Januvia 100 mg daily, low resistance aspart scale.
Will increase Lantus to 14 units daily.
Pancytopenia -likely chronic and due to cirrhosis, alcoholism. Awaiting records from [facility]. Discussed with gunite nozzle operator and nurse. Counts are getting worse, more neutropenic today. No fevers; Await improvement in platelets/wbc
Full code
Dispo -anticipate discharge to inpatient alcohol rehab. Case management aware.
Anticipated Discharge: Within 24 hours
Subjective/Interval History
-
Date of Service: March 01, 2024
No acute events
Objective Data
-
Labs:
Laboratory Results
03/01/24
09:14
WBC 1.5 L*
Hgb 10.8 L
Hct 30.9 L
Plt Count 24 L*
Sodium 132 L
Potassium 3.8
Chloride 104
Carbon Dioxide 21 L
BUN 8 L
Creatinine 0.5 L
Glucose 253 H
Calcium 8.8
Total Bilirubin 3.7 H
AST 28
ALT 23
Alkaline Phosphatase 145 H
Vital Signs:
Vital Signs
Temp Pulse Resp BP Pulse Ox
98.7 F 79 16 122/55 98
03/01/24 07:00 03/01/24 07:57 03/01/24 07:00 03/01/24 07:57 03/01/24 07:00
I&O
02/29/24 03/01/24 03/02/24
06:59 06:59 06:59
Intake Total 3220 / 3220 1760 / 1760
Output Total 2355 / 2355
Balance 865 / 865 1760 / 1760
Review of Systems
-
History Source: Patient
All other systems: Not reviewed unless documented
Data Reviewed
-
CT Scan: Image personally visualized and interpreted and Report Reviewed by me
Labs: Labs Reviewed by me
--- NOTE | 2024-03-01 14:28 | CM ---
Critical lab values today. Not medically cleared for discharge. [facility] liaisonJesus is following patient. [facility] interested in [facility] patient. JASMEET is following with [facility].
[2024-03-01 15:05] VITALS: BP 126/81
[2024-03-01] MEDS: NOVOLOG FLEXPEN-LOW RESISTANCE 1 UNITS SC (17:03)
[2024-03-01 17:04] LABS: Glucose - Point of Care 182 mg/dl (70-99)
[2024-03-01] MEDS: DUPHALAC/CHRONULAC PO (21:02)
[2024-03-01 21:47] LABS: Glucose - Point of Care 259 mg/dl (70-99)
[2024-03-01 23:05] VITALS: BP 118/68
[2024-03-02 05:55] VITALS: BMI 25.7
[2024-03-02 07:00] VITALS: BP 120/66
[2024-03-02 07:11] LABS: Hematocrit 32.1 % (39.0-52.0); Hemoglobin 11.3 g/dL (13.0-18.0); Mean Corp Hgb Conc. 35.2 g/dL (33.0-37.0); Mean Corpuscular Hgb 34.8 pg (27.0-31.0); Mean Corpuscular Volume 98.8 fL (80.0-94.0); Platelet Count 26 10^3/uL (130-400); Red Blood Cell Count 3.25 10^6/uL (4.70-6.10); Red Cell Dist. Width 18.1 % (11.5-14.5); White Blood Cell Count 1.3 10^3/uL (4.8-10.8)
[2024-03-02] MEDS: LANTUS 0.14 UNITS SC (07:17)
[2024-03-02] MEDS: NOVOLOG FLEXPEN-LOW RESISTANCE 2 UNITS SC ×2 (07:18→12:54)
[2024-03-02 07:20] LABS: Glucose - Point of Care 214 mg/dl (70-99)
[2024-03-02 07:24] LABS: ALT (SGPT) 23 U/L (0-50); AST (SGOT) 29 U/L (17-59); Albumin 3.1 g/dl (3.5-5.0); Alkaline Phosphatase 119 U/L (38-126); Blood Urea Nitrogen 5 mg/dl (9-20); Calcium 8.5 mg/dl (8.4-10.2); Carbon Dioxide 23 mmol/L (22-30); Chloride 106 mmol/L (98-107); Estimated Creatinine Clearance > 125 ml/min; Glucose 235 mg/dl (70-99); Sodium 133 mmol/L (135-145); Total Bilirubin 4.4 mg/dl (0.2-1.3); eGFR > 60.00
[2024-03-02] MEDS: TYLENOL 650 MG PO (08:09)
[2024-03-02 08:12] LABS: Anisocytosis 1+; Band Neutrophils 0 % (0-3); Hypochromasia 1+; Lymphocytes 28 % (20-51); Monocytes 16 % (2-9); Normal RBC Morphology No; Platelets Checked Yes; Segmented Neutrophils 56 % (42-75)
[2024-03-02 08:13] LABS: Absolute Neutrophils -Man Diff 0.7 10^3/uL (1.4-6.5); Total Cells Counted 100
--- NOTE | 2024-03-02 08:51 | PTOTSP ---
pt currently demonstrates ability to complete simple ADLs, functional transfers, ambulation with no assistance. pt is concerned with going to rehab and having clothes to wear. no further acute OT needs identified at this time, will sign off.
[2024-03-02] MEDS: DUPHALAC/CHRONULAC 30 GRAMS PO ×2 (09:02→15:22)
[2024-03-02] MEDS: JANUVIA 100 MG PO (09:04)
[2024-03-02] MEDS: VITAMIN B1 100 MG PO ×2 (09:04→19:43)
[2024-03-02] MEDS: LIDOCAINE 4% PATCH 1 PATCH TOPICAL (09:05)
[2024-03-02] MEDS: PROTONIX 40 MG PO (09:05)
[2024-03-02] MEDS: FOLVITE 1 MG PO (09:05)
[2024-03-02] MEDS: ALDACTONE 25 MG PO (09:06)
[2024-03-02 11:42] LABS: Glucose - Point of Care 227 mg/dl (70-99)
--- NOTE | 2024-03-02 12:42 | CM ---
CM following re: discharge planning.
Reviewed pt's chart, met with pt.
According to pt is not medically stable to be discharged and will be in the hospital approximately for a few more days.
CM spoke to [facility] SUSHMA steiner he stated that [facility] is looking for to accept the pt when pt is medically stable. Updated pt's clinical needs to be faxed to [facility] closer to discharge at [phone]. Per Jesus, [facility] will obtain an auth
for inpatient residential D&A rehab when [facility] inpatient [facility] accepts the pt.
Pt is aware and expressed his agreement to g to [facility] inpatient residential D%&A rehab.
CM will follow with discharge plan updates as hospitalization progresses
--- NOTE | 2024-03-02 13:18 | W.PN.HOSP.TC ---
Today's Communication/Plan
-
monitor wbc, platelets
dc to rehab once improved
Assessment / Plan
Assessment / Plan
Gen-AAOx3, NAD
HEENT-NC, AT, anicteric, clear oral mm
Neck-supple
CV-reg, no M, +S1/S2
Lungs-clear B/L
Abd-soft, NT, ND, ostomy intact
Ext-no edema
Musculoskeletal-no cyanosis, clubbing
Skin-warm and dry
Neuro-grossly non-focal
Psych-calm, cooperative
Intractable nausea/vomiting -no obstruction noted on x-ray. Nausea resolved. Suspect related to acidosis which is now resolved with bicarbonate drip.
Acute alcohol intoxication -last drink was morning of admission. Alcohol level 62. He claims he had 1-1/2 glasses of wine. States he was sober for 2 weeks prior to today. [place] increased anxiety and stress this morning due to financial situation
and decided to have some drinks. OK to go to rehab upon dc
Hepatic encephalopathy -mental status improving, continue lactulose.
Metabolic acidosis -normal anion gap. Acidosis improved with bicarb drip. Can discontinue and recheck labs in the morning.
Hyponatremia -suspect due to alcohol abuse, cirrhosis. monitor.
Hypokalemia -magnesium normal. Replete orally.
Alcoholic cirrhosis -INR 1.9. Elevated bilirubin noted, mostly indirect. Transaminases and alkaline phosphatase normal. Will need ongoing GI follow-up after discharge.
Severe alcohol use disorder -recommend rehab on discharge. Consult psychiatry for assistance. He does have anxiety disorder. Alcohol withdrawal protocol, thiamine, folic acid. Discussed with case management to look into rehab options.
History of colon cancer - recent colectomy and colostomy creation in July at [facility]. Has not been back to see gastroenterology since.
DM2 with hyperglycemia -hemoglobin A1c 6.0%. He is on Lantus 10 units daily and lispro sliding scale along with Januvia at home. Glucose 198 this morning. Currently on Lantus 10 units daily, Januvia 100 mg daily, low resistance aspart scale.
Will increase Lantus to 14 units daily.
Pancytopenia -likely chronic and due to cirrhosis, alcoholism. Awaiting records from [facility]. Discussed with control panel operator crude unit and nurse. Counts are getting worse, more neutropenic today. No fevers; Await improvement in platelets/wbc
Full code
Dispo -anticipate discharge to inpatient alcohol rehab once pancytopenia improves. Case management aware.
Anticipated Discharge: 24 - 48 hours
Subjective/Interval History
-
Date of Service: March 02, 2024
no acute events
Objective Data
-
Labs:
Laboratory Results
03/02/24
05:18
WBC 1.3 L*
Hgb 11.3 L
Hct 32.1 L
Plt Count 26 L*
Sodium 133 L
Potassium 4.0
Chloride 106
Carbon Dioxide 23
BUN 5 L
Creatinine 0.5 L
Glucose 235 H
Calcium 8.5
Total Bilirubin 4.4 H
AST 29
ALT 23
Alkaline Phosphatase 119
Vital Signs:
Vital Signs
Temp Pulse Resp BP Pulse Ox
98.2 F 78 16 120/66 99
03/02/24 07:00 03/02/24 09:06 03/02/24 07:00 03/02/24 09:06 03/02/24 07:39
I&O
03/01/24 03/02/24 03/03/24
06:59 06:59 06:59
Intake Total 1760 / 1760 2880 / 2880
Balance 1760 / 1760 2880 / 2880
Review of Systems
-
History Source: Patient
All other systems: Not reviewed unless documented
Data Reviewed
-
CT Scan: Image personally visualized and interpreted and Report Reviewed by me
Labs: Labs Reviewed by me
[2024-03-02 15:00] VITALS: BP 127/68
[2024-03-02 16:39] LABS: Glucose - Point of Care 186 mg/dl (70-99)
[2024-03-02] MEDS: NOVOLOG FLEXPEN 5 UNITS SC (17:08)
[2024-03-02] MEDS: NOVOLOG FLEXPEN-LOW RESISTANCE 1 UNITS SC (17:08)
[2024-03-02] MEDS: DUPHALAC/CHRONULAC PO (19:14)
[2024-03-02 21:13] LABS: Glucose - Point of Care 237 mg/dl (70-99)
[2024-03-02 23:00] VITALS: BP 123/43
--- NOTE | 2024-03-03 04:24 | PTCARENOTE ---
pt has been c/o being hungry and glucose was checked as he been running high. Pt was given sugar free alternatives.
[2024-03-03 04:26] LABS: Glucose - Point of Care 252 mg/dl (70-99)
[2024-03-03 06:00] VITALS: BMI 25.6
[2024-03-03 07:00] VITALS: BP 125/75
[2024-03-03 07:11] LABS: Glucose - Point of Care 204 mg/dl (70-99)
[2024-03-03 07:26] LABS: ALT (SGPT) 23 U/L (0-50); AST (SGOT) 28 U/L (17-59); Albumin 3.1 g/dl (3.5-5.0); Alkaline Phosphatase 129 U/L (38-126); Blood Urea Nitrogen 8 mg/dl (9-20); Calcium 8.3 mg/dl (8.4-10.2); Carbon Dioxide 22 mmol/L (22-30); Chloride 105 mmol/L (98-107); Estimated Creatinine Clearance > 125 ml/min; Glucose 233 mg/dl (70-99); Potassium 3.7 mmol/L (3.5-5.1); Sodium 132 mmol/L (135-145); Total Bilirubin 3.6 mg/dl (0.2-1.3); Total Protein 6.1 g/dl (6.3-8.2); eGFR > 60.00
[2024-03-03] MEDS: NOVOLOG FLEXPEN-LOW RESISTANCE 2 UNITS SC ×3 (07:26→16:47)
[2024-03-03] MEDS: NOVOLOG FLEXPEN 5 UNITS SC ×3 (07:26→16:45)
[2024-03-03 07:33] LABS: Hemoglobin 11.2 g/dL (13.0-18.0); Mean Corpuscular Hgb 33.4 pg (27.0-31.0); Mean Corpuscular Volume 95.5 fL (80.0-94.0); Mean Platelet Volume 11.9 fL (7.4-10.4); Platelet Count 43 10^3/uL (130-400); Red Blood Cell Count 3.35 10^6/uL (4.70-6.10); Red Cell Dist. Width 17.9 % (11.5-14.5); White Blood Cell Count 2.5 10^3/uL (4.8-10.8)
[2024-03-03] MEDS: PROTONIX 40 MG PO (08:07)
[2024-03-03] MEDS: VITAMIN B1 100 MG PO ×2 (08:07→20:59)
[2024-03-03] MEDS: LIDOCAINE 4% PATCH 1 PATCH TOPICAL (08:08)
[2024-03-03] MEDS: ALDACTONE 25 MG PO (08:08)
[2024-03-03] MEDS: JANUVIA 100 MG PO (08:08)
[2024-03-03] MEDS: DUPHALAC/CHRONULAC 30 GRAMS PO ×2 (08:08→16:47)
[2024-03-03] MEDS: LANTUS 0.16 UNITS SC (08:08)
[2024-03-03] MEDS: FOLVITE 1 MG PO (08:08)
[2024-03-03 11:02] LABS: Absolute Neutrophils -Man Diff 1.2 10^3/uL (1.4-6.5); Band Neutrophils 1 % (0-3); Lymphocytes 32 % (20-51); Monocytes 17 % (2-9); Segmented Neutrophils 50 % (42-75)
[2024-03-03 11:04] LABS: Normal RBC Morphology No; Platelets Checked YES
[2024-03-03 11:05] LABS: Macrocytosis FEW; Ovalocytes FEW
[2024-03-03 11:07] LABS: Total Cells Counted 100
[2024-03-03 12:02] LABS: Glucose - Point of Care 212 mg/dl (70-99)
--- NOTE | 2024-03-03 12:38 | W.PN.HOSP.TC ---
Today's Communication/Plan
-
clear for dc - cm aware
monitor cbc
Assessment / Plan
Assessment / Plan
Gen-AAOx3, NAD
HEENT-NC, AT, anicteric, clear oral mm
Neck-supple
CV-reg, no M, +S1/S2
Lungs-clear B/L
Abd-soft, NT, ND, ostomy intact
Ext-no edema
Musculoskeletal-no cyanosis, clubbing
Skin-warm and dry
Neuro-grossly non-focal
Psych-calm, cooperative
Intractable nausea/vomiting -no obstruction noted on x-ray. Nausea resolved. Suspect related to acidosis which is now resolved with bicarbonate drip.
Acute alcohol intoxication -last drink was morning of admission. Alcohol level 62. He claims he had 1-1/2 glasses of wine. States he was sober for 2 weeks prior to today. [place] increased anxiety and stress this morning due to financial situation
and decided to have some drinks. OK to go to rehab upon dc
Hepatic encephalopathy -mental status improving, continue lactulose.
Metabolic acidosis -normal anion gap. Acidosis improved with bicarb drip. Can discontinue and recheck labs in the morning.
Hyponatremia -suspect due to alcohol abuse, cirrhosis. monitor.
Hypokalemia -magnesium normal. Replete orally.
Alcoholic cirrhosis -INR 1.9. Elevated bilirubin noted, mostly indirect. Transaminases and alkaline phosphatase normal. Will need ongoing GI follow-up after discharge.
Severe alcohol use disorder -recommend rehab on discharge. Consult psychiatry for assistance. He does have anxiety disorder. Alcohol withdrawal protocol, thiamine, folic acid. Discussed with case management to look into rehab options.
History of colon cancer - recent colectomy and colostomy creation in July at [facility]. Has not been back to see gastroenterology since.
DM2 with hyperglycemia -hemoglobin A1c 6.0%. He is on Lantus 10 units daily and lispro sliding scale along with Januvia at home. Glucose 198 this morning. Currently on Lantus 10 units daily, Januvia 100 mg daily, low resistance aspart scale.
Will increase Lantus to 14 units daily.
Pancytopenia -likely chronic and due to cirrhosis, alcoholism. Awaiting records from [facility]. Discussed with community health advisor and nurse. Counts are getting worse, more neutropenic today. No fevers; finally improving, cleared for
discharge.
Full code
Dispo -clear for dc
Anticipated Discharge: Within 24 hours
Subjective/Interval History
-
Date of Service: March 03, 2024
No acute events overnight
Objective Data
-
Labs:
Laboratory Results
03/03/24
06:21
WBC 2.5 L
Hgb 11.2 L
Hct 32.0 L
Plt Count 43 L D
Sodium 132 L
Potassium 3.7
Chloride 105
Carbon Dioxide 22
BUN 8 L
Creatinine 0.5 L
Glucose 233 H
Calcium 8.3 L
Total Bilirubin 3.6 H
AST 28
ALT 23
Alkaline Phosphatase 129 H
Vital Signs:
Vital Signs
Temp Pulse Resp BP Pulse Ox
98.2 F 72 18 125/75 100
03/03/24 07:00 03/03/24 07:00 03/03/24 07:00 03/03/24 07:00 03/03/24 07:00
I&O
03/02/24 03/03/24 03/04/24
06:59 06:59 06:59
Intake Total 2880 / 2880 1100 / 1100
Balance 2880 / 2880 1100 / 1100
Review of Systems
-
History Source: Patient
All other systems: Not reviewed unless documented
Data Reviewed
-
CT Scan: Image personally visualized and interpreted and Report Reviewed by me
Labs: Labs Reviewed by me
[2024-03-03 15:00] VITALS: BP 147/72
--- NOTE | 2024-03-03 15:00 | CM ---
Anticipate discharge on 03/04/24 to [facility] for substance abuse. [facility] has initiated referral and will obtain the insurance auth. They also will arrange for transportation.
[2024-03-03 16:37] LABS: Glucose - Point of Care 206 mg/dl (70-99)
[2024-03-03] MEDS: DUPHALAC/CHRONULAC PO ×2 (20:59→21:02)
[2024-03-03 21:36] LABS: Glucose - Point of Care 233 mg/dl (70-99)
[2024-03-03 23:54] VITALS: BP 128/65
[2024-03-04 06:00] VITALS: BMI 25.5
[2024-03-04 07:00] VITALS: BP 131/67
[2024-03-04 07:15] LABS: Glucose - Point of Care 182 mg/dl (70-99)
[2024-03-04] MEDS: LANTUS 0.18 UNITS SC (07:49)
[2024-03-04] MEDS: NOVOLOG FLEXPEN 5 UNITS SC ×3 (07:50→17:13)
[2024-03-04] MEDS: NOVOLOG FLEXPEN-LOW RESISTANCE 1 UNITS SC ×3 (07:50→17:14)
[2024-03-04 08:16] LABS: Platelet Count 52 10^3/uL (130-400)
[2024-03-04 08:17] LABS: Hematocrit 34.2 % (39.0-52.0); Hemoglobin 11.8 g/dL (13.0-18.0); Mean Corp Hgb Conc. 34.5 g/dL (33.0-37.0); Mean Corpuscular Hgb 33.3 pg (27.0-31.0); Mean Corpuscular Volume 96.6 fL (80.0-94.0); Mean Platelet Volume 10.8 fL (7.4-10.4); Red Blood Cell Count 3.54 10^6/uL (4.70-6.10); Red Cell Dist. Width 17.4 % (11.5-14.5); White Blood Cell Count 2.6 10^3/uL (4.8-10.8)
[2024-03-04 08:29] LABS: ALT (SGPT) 24 U/L (0-50); AST (SGOT) 29 U/L (17-59); Albumin 3.3 g/dl (3.5-5.0); Alkaline Phosphatase 129 U/L (38-126); Blood Urea Nitrogen 7 mg/dl (9-20); Calcium 8.5 mg/dl (8.4-10.2); Carbon Dioxide 22 mmol/L (22-30); Chloride 105 mmol/L (98-107); Estimated Creatinine Clearance > 125 ml/min; Glucose 192 mg/dl (70-99); Potassium 3.8 mmol/L (3.5-5.1); Sodium 133 mmol/L (135-145); Total Protein 6.4 g/dl (6.3-8.2); eGFR > 60.00
[2024-03-04 08:33] VITALS: BP 131/67
[2024-03-04] MEDS: DUPHALAC/CHRONULAC 30 GRAMS PO ×3 (08:57→22:00)
[2024-03-04] MEDS: ALDACTONE 25 MG PO (08:58)
[2024-03-04] MEDS: PROTONIX 40 MG PO (08:58)
[2024-03-04] MEDS: VITAMIN B1 100 MG PO ×2 (08:58→19:41)
[2024-03-04] MEDS: JANUVIA 100 MG PO (08:58)
[2024-03-04] MEDS: FOLVITE 1 MG PO (08:59)
[2024-03-04] MEDS: LIDOCAINE 4% PATCH TOPICAL (09:04)
[2024-03-04 10:55] LABS: Absolute Neutrophils -Man Diff 1.4 10^3/uL (1.4-6.5); Band Neutrophils 1 % (0-3); Eosinophils 4 % (0-6); Lymphocytes 25 % (20-51); Monocytes 17 % (2-9); Platelets Checked Yes; Segmented Neutrophils 53 % (42-75)
[2024-03-04 10:56] LABS: Anisocytosis 1+; Hypochromasia Slight; Normal RBC Morphology No; Polychromasia 1+
[2024-03-04 10:57] LABS: Total Cells Counted 100
[2024-03-04 12:08] LABS: Glucose - Point of Care 185 mg/dl (70-99)
--- NOTE | 2024-03-04 12:47 | W.PN.HOSP.TC ---
Today's Communication/Plan
-
cbc in 3-5 days
f/u pcp, gi outpatient
Assessment / Plan
Assessment / Plan
Gen-AAOx3, NAD
HEENT-NC, AT, anicteric, clear oral mm
Neck-supple
CV-reg, no M, +S1/S2
Lungs-clear B/L
Abd-soft, NT, ND, ostomy intact
Ext-no edema
Musculoskeletal-no cyanosis, clubbing
Skin-warm and dry
Neuro-grossly non-focal
Psych-calm, cooperative
Intractable nausea/vomiting -no obstruction noted on x-ray. Nausea resolved. Suspect related to acidosis which is now resolved with bicarbonate drip.
Acute alcohol intoxication -last drink was morning of admission. Alcohol level 62. He claims he had 1-1/2 glasses of wine. States he was sober for 2 weeks prior to today. [place] increased anxiety and stress this morning due to financial situation
and decided to have some drinks. OK to go to rehab upon dc
Hepatic encephalopathy -mental status improving, continue lactulose.
Metabolic acidosis -normal anion gap. Acidosis improved with bicarb drip. Can discontinue and recheck labs in the morning.
Hyponatremia -suspect due to alcohol abuse, cirrhosis. monitor.
Hypokalemia -magnesium normal. Replete orally.
Alcoholic cirrhosis -INR 1.9. Elevated bilirubin noted, mostly indirect. Transaminases and alkaline phosphatase normal. Will need ongoing GI follow-up after discharge.
Severe alcohol use disorder -recommend rehab on discharge. Consult psychiatry for assistance. He does have anxiety disorder. Alcohol withdrawal protocol, thiamine, folic acid. Discussed with case management to look into rehab options.
History of colon cancer - recent colectomy and colostomy creation in July at [facility]. Has not been back to see gastroenterology since.
DM2 with hyperglycemia -hemoglobin A1c 6.0%. He is on Lantus 10 units daily and lispro sliding scale along with Januvia at home. Glucose 198 this morning. Currently on Lantus 10 units daily, Januvia 100 mg daily, low resistance aspart scale.
Will increase Lantus to 14 units daily.
Pancytopenia -likely chronic and due to cirrhosis, alcoholism. Awaiting records from [facility]. Discussed with community service coordinator and nurse. No fevers; finally improving, cleared for discharge. F/u CBC outpatient
Full code
More than 30 minutes spent in discharge including
Final examination of the patient
Summarizing hospital stay
Instructions for continuing care to all relevant caregivers
Preparation of discharge records, prescriptions, and referral forms
Total time spent (35 in minutes):
Anticipated Discharge: Today
Subjective/Interval History
-
Date of Service: March 04, 2024
No acute events
Objective Data
-
Labs:
Laboratory Results
03/04/24
07:04
WBC 2.6 L
Hgb 11.8 L
Hct 34.2 L
Plt Count 52 L D
Sodium 133 L
Potassium 3.8
Chloride 105
Carbon Dioxide 22
BUN 7 L
Creatinine 0.5 L
Glucose 192 H
Calcium 8.5
Total Bilirubin 4.0 H
AST 29
ALT 24
Alkaline Phosphatase 129 H
Vital Signs:
Vital Signs
Temp Pulse Resp BP Pulse Ox
97.9 F 71 16 131/67 97
03/04/24 07:00 03/04/24 08:58 03/04/24 07:00 03/04/24 08:58 03/04/24 10:23
I&O
03/03/24 03/04/24 03/05/24
06:59 06:59 06:59
Intake Total 1100 / 1100 2220 / 2220
Balance 1100 / 1100 2220 / 2220
Review of Systems
-
History Source: Patient
All other systems: Not reviewed unless documented
Data Reviewed
-
CT Scan: Image personally visualized and interpreted and Report Reviewed by me
Labs: Labs Reviewed by me
--- NOTE | 2024-03-04 12:49 | W.DS.TRANS ---
DC Summary - Pediatric Physician Assistant
-
Discharge Instructions:
Discharge Diagnosis/Procedures Acute alcohol intoxication
Hepatic encephalopathy
Pancytopenia
Diet Diabetic, Carb Controlled,Low Cholesterol,Low
Fat
Activity As tolerated
Blood Work cbc in 3-5 days - monitoring WBC, Platelets
Instructions:
Stand-Alone Forms:
Changes to Home Medications: Yes
Discharge Medications:
DC Medications w/original date entered in [employer]
folic acid 1 mg tablet 1 mg PO DAILY Supplement 02/26/24
insulin lispro 100 unit/mL subcutaneous pen 0 sliding scale dose SC .SEE BELOW Diabetes 02/26/24
lactulose 10 gram/15 mL oral solution 22 ml PO BID Liver Issues 02/26/24
quetiapine 25 mg tablet 25 mg PO DAILY Mental Health/Anxiety 02/26/24
sitagliptin phosphate 100 mg tablet (Januvia) 100 mg PO DAILY Diabetes 02/26/24
insulin aspart U-100 100 unit/mL (3 mL) subcutaneous pen 5 unit (0.05 mL) SC AC #15 mL 03/04/24
insulin glargine 100 unit/mL (3 mL) subcutaneous pen (Lantus Solostar U-100 Insulin) 18 unit (0.18 mL) SC .SEE BELOW Diabetes #0 mL 03/04/24
lidocaine 4 % topical patch 1 patch topical DAILY #30 ea 03/04/24
pantoprazole 40 mg tablet,delayed release 40 mg PO DAILY 30 days #30 tabs 03/04/24
spironolactone 25 mg tablet 25 mg PO DAILY 30 days #30 tabs 03/04/24
thiamine HCl (vitamin B1) 100 mg tablet 100 mg PO BID 30 days #60 tabs 03/04/24
Home Medication Changes
insulin aspart U-100 100 unit/mL (3 mL) subcutaneous pen 5 unit (0.05 mL) SC AC #15 mL 03/04/24
insulin glargine 100 unit/mL (3 mL) subcutaneous pen (Lantus Solostar U-100 Insulin) 18 unit (0.18 mL) SC .SEE BELOW Diabetes #0 mL 03/04/24
lidocaine 4 % topical patch 1 patch topical DAILY #30 ea 03/04/24
pantoprazole 40 mg tablet,delayed release 40 mg PO DAILY 30 days #30 tabs 03/04/24
spironolactone 25 mg tablet 25 mg PO DAILY 30 days #30 tabs 03/04/24
thiamine HCl (vitamin B1) 100 mg tablet 100 mg PO BID 30 days #60 tabs 03/04/24
Pending Results: No
--- NOTE | 2024-03-04 12:58 | CM ---
Spoke with JASMEET. Patient to go to [facility]. Insurance auth obtained by [facility]. No available bed today. Attending and patient aware.
[2024-03-04 15:00] VITALS: BP 120/61
[2024-03-04 17:02] LABS: Glucose - Point of Care 160 mg/dl (70-99)
[2024-03-04] MEDS: DUPHALAC/CHRONULAC PO (21:36)
[2024-03-04 21:44] LABS: Glucose - Point of Care 234 mg/dl (70-99)
[2024-03-04 23:08] VITALS: BP 123/63
[2024-03-05 05:52] VITALS: BMI 25.5
[2024-03-05 07:00] VITALS: BP 128/74
[2024-03-05 07:02] LABS: Glucose - Point of Care 236 mg/dl (70-99)
[2024-03-05 08:00] VITALS: BP 128/74
[2024-03-05 08:52] LABS: Hematocrit 34.3 % (39.0-52.0); Mean Corpuscular Hgb 34.2 pg (27.0-31.0); Mean Corpuscular Volume 97.7 fL (80.0-94.0); Mean Platelet Volume 11.2 fL (7.4-10.4); Platelet Count 65 10^3/uL (130-400); Red Blood Cell Count 3.51 10^6/uL (4.70-6.10); Red Cell Dist. Width 17.6 % (11.5-14.5); White Blood Cell Count 3.1 10^3/uL (4.8-10.8)
[2024-03-05] MEDS: DUPHALAC/CHRONULAC 30 GRAMS PO (09:34)
[2024-03-05] MEDS: LANTUS 0.18 UNITS SC (09:34)
[2024-03-05] MEDS: JANUVIA 100 MG PO (09:35)
[2024-03-05] MEDS: ALDACTONE 25 MG PO (09:35)
[2024-03-05] MEDS: VITAMIN B1 100 MG PO (09:35)
[2024-03-05 09:36] LABS: Absolute Neutrophils -Man Diff 1.7 10^3/uL (1.4-6.5); Band Neutrophils 0 % (0-3); Eosinophils 2 % (0-6); Lymphocytes 25 % (20-51); Monocytes 15 % (2-9); Platelets Checked Yes; Segmented Neutrophils 58 % (42-75)
[2024-03-05] MEDS: NOVOLOG FLEXPEN-LOW RESISTANCE 2 UNITS SC (09:36)
[2024-03-05] MEDS: NOVOLOG FLEXPEN 5 UNITS SC ×2 (09:36→11:54)
[2024-03-05] MEDS: FOLVITE 1 MG PO (09:36)
[2024-03-05] MEDS: PROTONIX 40 MG PO (09:36)
[2024-03-05 09:37] LABS: Anisocytosis 1+; Normal RBC Morphology No; Polychromasia Slight; Total Cells Counted 100
[2024-03-05] MEDS: LIDOCAINE 4% PATCH TOPICAL (09:40)
[2024-03-05 09:48] LABS: ALT (SGPT) 23 U/L (0-50); AST (SGOT) 35 U/L (17-59); Albumin 3.3 g/dl (3.5-5.0); Alkaline Phosphatase 111 U/L (38-126); Blood Urea Nitrogen 7 mg/dl (9-20); Calcium 8.5 mg/dl (8.4-10.2); Carbon Dioxide 21 mmol/L (22-30); Chloride 103 mmol/L (98-107); Estimated Creatinine Clearance > 125 ml/min; Glucose 276 mg/dl (70-99); Sodium 133 mmol/L (135-145); Total Bilirubin 3.7 mg/dl (0.2-1.3); Total Protein 6.4 g/dl (6.3-8.2); eGFR > 60.00
--- NOTE | 2024-03-05 11:28 | CM ---
CM recieved call from [facility] [phone] who explains that [facility] can accept pt today and will arrange transport for an [employer] molded goods spot picker at 12 noon. No report needed. Nothing faxed needed.
CM let pt know and team via TT.
Plan to update Kaitlyn once pt has been picked up.
CM offered to call any family/friends to update but pt declined.
--- NOTE | 2024-03-05 11:41 | W.PN.HOSP.TC ---
Addendum entered and electronically signed by Daniel Dolan MD 03/06/24 15:10:
[id number]
Original Note:
Today's Communication/Plan
-
cbc in 3-5 days
f/u pcp, gi outpatient
Assessment / Plan
Assessment / Plan
Gen-AAOx3, NAD
HEENT-NC, AT, anicteric, clear oral mm
Neck-supple
CV-reg, no M, +S1/S2
Lungs-clear B/L
Abd-soft, NT, ND, ostomy intact
Ext-no edema
Musculoskeletal-no cyanosis, clubbing
Skin-warm and dry
Neuro-grossly non-focal
Psych-calm, cooperative
Intractable nausea/vomiting -no obstruction noted on x-ray. Nausea resolved. Suspect related to acidosis which is now resolved with bicarbonate drip.
Acute alcohol intoxication -last drink was morning of admission. Alcohol level 62. He claims he had 1-1/2 glasses of wine. States he was sober for 2 weeks prior to today. [place] increased anxiety and stress this morning due to financial situation
and decided to have some drinks. OK to go to rehab upon dc
Hepatic encephalopathy -mental status improving, continue lactulose.
Metabolic acidosis -normal anion gap. Acidosis improved with bicarb drip. Can discontinue;labs wnl
Hyponatremia -suspect due to alcohol abuse, cirrhosis. monitor.
Hypokalemia -magnesium normal. Replete orally.
Alcoholic cirrhosis -INR 1.9. Elevated bilirubin noted, mostly indirect. Transaminases and alkaline phosphatase normal. Will need ongoing GI follow-up after discharge.
Severe alcohol use disorder -recommend rehab on discharge. Consult psychiatry for assistance. He does have anxiety disorder. Alcohol withdrawal protocol, thiamine, folic acid. Discussed with case management to look into rehab options.
History of colon cancer - recent colectomy and colostomy creation in July at [facility]. Has not been back to see gastroenterology since.
DM2 with hyperglycemia -hemoglobin A1c 6.0%. He is on Lantus 10 units daily and lispro sliding scale along with Januvia at home. Glucose 198 this morning. Currently on Lantus 10 units daily, Januvia 100 mg daily, low resistance aspart scale.
Will increase Lantus to 14 units daily.
Pancytopenia -likely chronic and due to cirrhosis, alcoholism. Awaiting records from [facility]. Discussed with community manager and nurse. No fevers; finally improving, cleared for discharge. F/u CBC outpatient
Full code
More than 30 minutes spent in discharge including
Final examination of the patient
Summarizing hospital stay
Instructions for continuing care to all relevant caregivers
Preparation of discharge records, prescriptions, and referral forms
Total time spent (35 in minutes):
Anticipated Discharge: Today
Subjective/Interval History
-
Date of Service: March 05, 2024
no acute events
Objective Data
-
Labs:
Laboratory Results
03/05/24
08:02
WBC 3.1 L
Hgb 12.0 L
Hct 34.3 L
Plt Count 65 L D
Sodium 133 L
Potassium 4.0
Chloride 103
Carbon Dioxide 21 L
BUN 7 L
Creatinine 0.6 L
Glucose 276 H
Calcium 8.5
Total Bilirubin 3.7 H
AST 35
ALT 23
Alkaline Phosphatase 111
Vital Signs:
Vital Signs
Temp Pulse Resp BP Pulse Ox
97.9 F 78 18 128/74 99
03/05/24 07:00 03/05/24 09:35 03/05/24 07:00 03/05/24 09:35 03/05/24 11:28
I&O
03/04/24 03/05/24 03/06/24
06:59 06:59 06:59
Intake Total 2219 / 0 2039
Balance 2219
Review of Systems
-
History Source: Patient
All other systems: Not reviewed unless documented
Data Reviewed
-
CT Scan: Image personally visualized and interpreted and Report Reviewed by me
Labs: Labs Reviewed by me
--- NOTE | 2024-03-05 11:43 | W.DS.TRANS ---
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
-
Discharge Instructions:
Discharge Diagnosis/Procedures Acute alcohol intoxication
Hepatic encephalopathy
Pancytopenia
Diet Diabetic, Carb Controlled,Low Cholesterol,Low
Fat
Activity As tolerated
Blood Work cbc in 3-5 days - monitoring WBC, Platelets
Instructions:
Stand-Alone Forms:
Changes to Home Medications: Yes
Discharge Medications:
DC Medications w/original date entered in [facility]
folic acid 1 mg tablet 1 mg PO DAILY Supplement 02/26/24
insulin lispro 100 unit/mL subcutaneous pen 0 sliding scale dose SC .SEE BELOW Diabetes 02/26/24
lactulose 10 gram/15 mL oral solution 22 ml PO BID Liver Issues 02/26/24
quetiapine 25 mg tablet 25 mg PO DAILY Mental Health/Anxiety 02/26/24
sitagliptin phosphate 100 mg tablet (Januvia) 100 mg PO DAILY Diabetes 02/26/24
insulin aspart U-100 100 unit/mL (3 mL) subcutaneous pen 5 unit (0.05 mL) SC AC #15 mL 03/04/24
insulin glargine 100 unit/mL (3 mL) subcutaneous pen (Lantus Solostar U-100 Insulin) 18 unit (0.18 mL) SC .SEE BELOW Diabetes #0 mL 03/04/24
lidocaine 4 % topical patch 1 patch topical DAILY #30 ea 03/04/24
pantoprazole 40 mg tablet,delayed release 40 mg PO DAILY 30 days #30 tabs 03/04/24
spironolactone 25 mg tablet 25 mg PO DAILY 30 days #30 tabs 03/04/24
thiamine HCl (vitamin B1) 100 mg tablet 100 mg PO BID 30 days #60 tabs 03/04/24
Home Medication Changes
insulin glargine 100 unit/mL (3 mL) subcutaneous pen (Lantus Solostar U-100 Insulin) 18 unit (0.18 mL) SC .SEE BELOW Diabetes #0 mL 03/04/24
lidocaine 4 % topical patch 1 patch topical DAILY #30 ea 03/04/24
pantoprazole 40 mg tablet,delayed release 40 mg PO DAILY 30 days #30 tabs 03/04/24
spironolactone 25 mg tablet 25 mg PO DAILY 30 days #30 tabs 03/04/24
thiamine HCl (vitamin B1) 100 mg tablet 100 mg PO BID 30 days #60 tabs 03/04/24
Pending Results: No
[2024-03-05] MEDS: NOVOLOG FLEXPEN-LOW RESISTANCE 1 UNITS SC (11:55)
[2024-03-05 11:56] LABS: Glucose - Point of Care 174 mg/dl (70-99)
--- NOTE | 2024-03-05 12:00 | PTCARENOTE ---
Patient discharged to [facility]. This RN reviewed patient's discharge medications and provided patient with discharge packet. Per CM, no report or med list to facility needed. No IV or tele pack on patient. Patient ate lunch and showered
prior to transport, mealtime insulin given - see MAR. Patient being transported by [employer] ordered by rehab facility, walked down to [facility] with belongings to meet [employer] with assistance of tech.
== END 2024-03-05 12:13 | disposition other institution (70) | DRG 442 ==
LOC: 2 NORTH 14:26
PROVIDERS: Clinical Nurse Specialist Family Health; ADMITTING PHYSICIAN Hospitalist; ATTENDING PHYSICIAN Internal Medicine; CONSULT PHYSICIAN Internal Medicine Gastroenterology; EMERGENCY PHYSICIAN Emergency Medicine; OTHER PHYSICIAN Psychiatry & Neurology Psychiatry
DX: K76.82 Hepatic encephalopathy (principal); D61.818 Other pancytopenia; E87.1 Hypo-osmolality and hyponatremia; K92.0 Hematemesis; D68.9 Coagulation defect, unspecified; E87.20 Acidosis, unspecified; F10.239 Alcohol dependence with withdrawal, unspecified; F10.229 Alcohol dependence with intoxication, unspecified; R53.1 Weakness; K70.30 Alcoholic cirrhosis of liver without ascites; E11.65 Type 2 diabetes mellitus with hyperglycemia; E87.6 Hypokalemia; F17.290 Nicotine dependence, other tobacco product, uncomplicated; R90.82 White matter disease, unspecified; K59.00 Constipation, unspecified; E88.09 Other disorders of plasma-protein metabolism, not elsewhere classified; D69.59 Other secondary thrombocytopenia; Y90.3 Blood alcohol level of 60-79 mg/100 ml; Z79.4 Long term (current) use of insulin; Z79.84 Long term (current) use of oral hypoglycemic drugs; Z85.038 Personal history of other malignant neoplasm of large intestine; Z93.3 Colostomy status; Z87.81 Personal history of (healed) traumatic fracture; Z80.8 Family history of malignant neoplasm of other organs or systems; Z82.5 Family history of asthma and other chronic lower respiratory diseases; Z91.148 Patient's other noncompliance with medication regimen for other reason
CPT/HCPCS: 70450; 74022; 80053; 80306; 80307; 81003; 81015; 82010; 82077; 82140; 82248; 82962; 82977; 83036; 83735; 84100; 85025; 85610; 93005; 96365; 97162; 97166; 97535; 99285